=== PATIENT | female | born 1960 | race Caucasian/White ===

== ENCOUNTER → 2019-03-26 | Outpatient (CLI) | payer BC | END | disposition home or self-care (01) | LOC: LAB 08:04 | DX: E65 Localized adiposity (principal) ==

== ENCOUNTER → 2019-10-23 | Outpatient (CLI) | payer BC | END | disposition home or self-care (01) | LOC: RAD 14:00 | DX: Z13.820 Encounter for screening for osteoporosis (principal); Z78.0 Asymptomatic menopausal state ==

== ENCOUNTER 2022-03-26 15:34 | Emergency (ER) | payer BC ==
[~2022-03-26] VITALS: Ht 167.6 cm; Wt 77.1 kg
== END 2022-03-26 17:22 | disposition home or self-care (01) ==
LOC: ED 15:34
DX: J10.1 Influenza due to other identified influenza virus with other respiratory manifestations (principal); Z20.822 Contact with and (suspected) exposure to COVID-19